=== PATIENT | female | born 1990 | race Caucasian/White ===

== ENCOUNTER → 2024-01-10 14:12 | Outpatient (CLI) | payer OTHER, SELFPAY ==
--- NOTE | 2024-01-10 14:18 | DI.RAD.S_ITS ---
PROCEDURE: XR FOOT LT 2V INDICATIONS: PAIN TECHNIQUE: 2 views of the foot were acquired. COMPARISON: [facility], CR, XR FOOT 3 VIEWS WEIGHT BEARING LEFT, 11/22/2021, 13:41. FINDINGS: Bones: No fractures or dislocations. Postsurgical changes from 5th metatarsal osteotomy with screw fixation. Some lucency is seen around the distal aspect of the screw, improved compared to prior. Postsurgical changes from 1st TMT joint arthrodesis and 1st metatarsal head bunionectomy. No suspicious bony lesions. Soft tissues: No tibiotalar joint effusion. Achilles tendon appears normal. IMPRESSION: Stable postsurgical changes and alignment of the 1st and 5th metatarsals without evidence of interval complication. No new acute osseous abnormalities. Dictated by: Drew Cesar M.D. on 01/10/2024 at 17:57 Approved by: Drew Cesar M.D. on 01/10/2024 at 17:59
--- NOTE | 2024-01-10 14:18 | DI.RAD.S_ITS ---
PROCEDURE: XR HAND RT 2V INDICATIONS: PAIN TECHNIQUE: 2 views of the hand(s) acquired. COMPARISON: None. FINDINGS: Bones: No fractures or dislocations. Carpal bones are normally aligned. No suspicious bony lesions. Soft tissues: No suspicious soft tissue calcifications. IMPRESSION: No acute osseous abnormality. If pain persists with conservative management, consider repeat x-ray in 10-14 days or cross-sectional imaging. Dictated by: Drew Cesar M.D. on 01/10/2024 at 17:56 Approved by: Drew Cesar M.D. on 01/10/2024 at 17:57
== END ==
LOC: RAD 14:17
PROVIDERS: Referring Provider Internal Medicine Cardiovascular Disease; Visit Provider Internal Medicine Cardiovascular Disease
DX: M25.549 Pain in joints of unspecified hand (principal); M25.579 Pain in unspecified ankle and joints of unspecified foot
CPT/HCPCS: 73120; 73620